=== PATIENT | male | born 1970 | race Caucasian/White ===

== ENCOUNTER 2016-11-24 19:45 | Emergency (ER) | payer OTHER ==
[~2016-11-24] VITALS: Ht 182.9 cm; Wt 113.4 kg
[2016-11-24 19:46] VITALS: BP 189/111
[2016-11-24] MEDS ORDERED: OXYC15TA76 PO (20:06)
[2016-11-24] MEDS ORDERED: DOCQ100C (20:06)
[2016-11-24] MEDS ORDERED: VITA50003 (20:06)
[2016-11-24] MEDS ORDERED: DILA1LIQ PO (20:06)
[2016-11-24] MEDS ORDERED: ALBU17IN (20:06)
== END 2016-11-24 21:58 | disposition left against medical advice (07) ==
LOC: M ED 21:45
DX: M54.9 Dorsalgia, unspecified (principal); Z53.21 Procedure and treatment not carried out due to patient leaving prior to being seen by health care provider